=== PATIENT | male | born 1945 | race Caucasian/White ===

== ENCOUNTER 2018-03-25 10:45 | Emergency (ER) | payer MEDICARE, OTHER ==
[~2018-03-25] VITALS: Ht 175.3 cm; Wt 80.0 kg
[~2018-03-25 10:45] MED LIST: ASPI-500; CARV-50 PO; FURO-150 PO; IBUP-24 PO; LISI-232 PO; MULT-785 PO; SIMV10TA2 PO
[2018-03-25 10:47] VITALS: BP 139/66
[2018-03-25] MEDS ORDERED: TETanus/Pertussis (Acell)/Diphther VAC/PF (Tdap-Adult) 0.5ml syringe IM ONE (11:05)
[2018-03-25] MEDS ORDERED: LIDOcaine 1% 30ml preserv. free vial IJ ONE (11:25)
[2018-03-25] MEDS ORDERED: HYDR-4384 PO (12:09)
[2018-03-25] MEDS ORDERED: HYDROcodone/acetaminophen 5mg/325mg tablet PO ONE (12:10)
== END 2018-03-25 13:07 | disposition home or self-care (01) ==
LOC: ER 10:46
DX: S42.491A Other displaced fracture of lower end of right humerus, initial encounter for closed fracture (principal); S01.111A Laceration without foreign body of right eyelid and periocular area, initial encounter; I25.10 Atherosclerotic heart disease of native coronary artery without angina pectoris; I50.9 Heart failure, unspecified; J44.9 Chronic obstructive pulmonary disease, unspecified; Z95.1 Presence of aortocoronary bypass graft; Z79.82 Long term (current) use of aspirin; Z79.899 Other long term (current) drug therapy; W18.49XA Other slipping, tripping and stumbling without falling, initial encounter; Y93.01 Activity, walking, marching and hiking; Y92.89 Other specified places as the place of occurrence of the external cause; Y99.9 Unspecified external cause status
CPT/HCPCS: 12011; 29105; 70450; 72125; 73080; 90471; 90715; 99284

== ENCOUNTER 2018-04-08 13:29 | Inpatient (IN) | payer MEDICARE, OTHER ==
[~2018-04-08] VITALS: Ht 175.3 cm; Wt 75.8 kg
[2018-04-08] MEDS ORDERED: normal saline 1000ML IV soln IVB ONE (13:50)
[2018-04-08] MEDS ORDERED: diltiazem 5mg/ml 5ml inj. IV ONE (13:55)
[2018-04-08] MEDS ORDERED: diltiazem 30mg tablet PO ONE (14:10)
[2018-04-08] MEDS ORDERED: enoxaparin 100mg/ml syringe SUBCUT ONE (14:10)
[2018-04-08 14:38] LABS: BASOPHILS # (AUTO) 0.1 X10'3 (0-0.2); BASOPHILS % (AUTO) 1.1 % (0-1); EOSINOPHILS # (AUTO) 0.1 X10'3 (0-0.9); EOSINOPHILS % (AUTO) 1.2 % (0-6); HEMATOCRIT 45.1 % (42.0-52.0); HEMOGLOBIN 14.8 g/dl (14.0-17.9); LYMPHOCYTES # (AUTO) 1.1 X10'3 (1.1-4.8); LYMPHOCYTES % (AUTO) 11.3 % (21-51); MEAN CORPUSCULAR HEMOGLOBIN 30.9 PG (27.0-31.0); MEAN CORPUSCULAR HGB CONC 32.8 % (33.0-36.5); MEAN CORPUSCULAR VOLUME 94.4 FL (78-98); MEAN PLATELET VOLUME 9.1 FL (7.4-10.4); MONOCYTES # (AUTO) 0.6 X10'3 (0-0.9); MONOCYTES % (AUTO) 6.1 % (2-12); NEUTROPHILS # (AUTO) 7.8 X10'3 (1.8-7.7); NEUTROPHILS % (AUTO) 80.3 % (42-75); PLATELET COUNT 222 X10'3 (140-440); RED BLOOD COUNT 4.78 X10'6 (4.70-6.10); RED CELL DISTRIBUTION WIDTH 13.3 % (11.5-14.5); WHITE BLOOD COUNT 9.8 X10'3 (4.5-11.0)
[2018-04-08 14:44] LABS: ALANINE AMINOTRANSFERASE 19 U/L (12-78); ALBUMIN 3.6 G/DL (3.4-5.0); ALBUMIN/GLOBULIN RATIO 1.2 (1.1-1.5); ALKALINE PHOSPHATASE 64 IU/L (46-116); ANION GAP 14 (8-16); ASPARTATE AMINO TRANSFERASE 27 U/L (10-37); BILIRUBIN,TOTAL 0.5 MG/DL (0.1-1.0); BLOOD UREA NITROGEN 20 MG/DL (7-18); BUN/CREATININE RATIO 16.4 (5.4-32.0); CALCIUM 9.5 MG/DL (8.5-10.1); CHLORIDE 102 MMOL/L (99-107); CREATININE 1.22 MG/DL (0.60-1.10); GLUCOSE 139 MG/DL (70-104); POTASSIUM 3.2 MMOL/L (3.5-5.1); SODIUM 139 MMOL/L (135-145); TOTAL CARBON DIOXIDE 22.7 MMOL/L (24-32); TOTAL PROTEIN 6.6 G/DL (6.4-8.2); eGFR 58 ML/MIN
[2018-04-08 14:48] LABS: INR 1.1 INR; PARTIAL THROMBOPLASTIN TIME 24 SECONDS (22-32); PROTHROMBIN TIME 11.4 SECONDS (9.0-12.0)
[2018-04-08 14:53] LABS: MAGNESIUM 1.8 MG/DL (1.5-2.4)
[2018-04-08] MEDS ORDERED: potassium Cl 20 mEq SR tablet PO STA (14:53)
[2018-04-08] MEDS ORDERED: aspirin 325mg tablet PO ONE (14:55)
[2018-04-08] MEDS ORDERED: ondansetron/PF 4mg/2ml inj IV PRN (17:35)
[2018-04-08] MEDS ORDERED: bisacodyl 10mg suppository rectal RC PRN (17:35)
[2018-04-08] MEDS ORDERED: magnesium 4gm in 100ml NS 100 ML IV PRN (17:35)
[2018-04-08] MEDS ORDERED: mag hydrox/Alum hydrox/simeth 30ml oral suspension PO PRN (17:35)
[2018-04-08] MEDS ORDERED: HYDROcodone/acetaminophen 10/325mg tab PO PRN (17:35)
[2018-04-08] MEDS ORDERED: magnesium hydroxide 30ml (MOM) UD suspension PO PRN (17:35)
[2018-04-08] MEDS ORDERED: acetaminophen 325mg tablet PO PRN ×2 (17:35)
[2018-04-08] MEDS ORDERED: magnesium 1gm/100ml D5W IVPB 100 ML IV PRN (17:35)
[2018-04-08] MEDS: K and/or MAG REPLACEMENT MC SCH (17:35)
[2018-04-08] MEDS ORDERED: diphenhydrAMINE 25mg capsule PO PRN (17:35)
[2018-04-08] MEDS ORDERED: morphine 2 MG/ML inj. syringe IV PRN ×2 (17:35)
[2018-04-08] MEDS ORDERED: potassium Cl 20 mEq SR tablet PO PRN (17:35)
[2018-04-08] MEDS ORDERED: potassium Cl 40MEQ/NS 500ml 500 ML IV PRN ×2 (17:35)
[2018-04-08] MEDS ORDERED: HYDROcodone/acetaminophen 5mg/325mg tablet PO PRN (17:35)
[2018-04-08 18:05] LABS: HEMOGLOBIN A1C 5.6 % (4.5-6.2)
[2018-04-08] MEDS: normal saline 1000ml 1,000 ML IV SCH ×2 (18:13→23:27)
[2018-04-08] MEDS: enoxaparin 40mg/0.4ml syringe SUBCUT SCH (20:16)
[2018-04-08] MEDS: enoxaparin 30mg/0.3ml syringe SUBCUT SCH (20:16)
[2018-04-08] MEDS ORDERED: temazepam 15mg capsule PO PRN (21:00)
[2018-04-08] MEDS ORDERED: ipratropium/albuterol 3ml nebule NEB PRN (21:45)
[2018-04-08 23:00] VITALS: BP 109/49
[2018-04-08] MEDS: potassium Cl 20 mEq SR tablet PO PRN (23:24)
[2018-04-09 03:00] VITALS: BP 120/64
[2018-04-09 03:05] LABS: BASOPHILS % (AUTO) 0.6 % (0-1); EOSINOPHILS # (AUTO) 0.1 X10'3 (0-0.9); EOSINOPHILS % (AUTO) 1.8 % (0-6); HEMATOCRIT 38.2 % (42.0-52.0); LYMPHOCYTES # (AUTO) 1.6 X10'3 (1.1-4.8); LYMPHOCYTES % (AUTO) 30.1 % (21-51); MEAN CORPUSCULAR HEMOGLOBIN 31.5 PG (27.0-31.0); MEAN CORPUSCULAR HGB CONC 34.1 % (33.0-36.5); MEAN CORPUSCULAR VOLUME 92.5 FL (78-98); MEAN PLATELET VOLUME 9.3 FL (7.4-10.4); MONOCYTES # (AUTO) 0.4 X10'3 (0-0.9); NEUTROPHILS # (AUTO) 3.2 X10'3 (1.8-7.7); NEUTROPHILS % (AUTO) 59.5 % (42-75); PLATELET COUNT 187 X10'3 (140-440); RED BLOOD COUNT 4.13 X10'6 (4.70-6.10); RED CELL DISTRIBUTION WIDTH 13.3 % (11.5-14.5); WHITE BLOOD COUNT 5.3 X10'3 (4.5-11.0)
[2018-04-09 03:10] LABS: ALANINE AMINOTRANSFERASE 17 U/L (12-78); ALBUMIN 2.9 G/DL (3.4-5.0); ALBUMIN/GLOBULIN RATIO 1.1 (1.1-1.5); ALKALINE PHOSPHATASE 63 IU/L (46-116); ANION GAP 7 (8-16); ASPARTATE AMINO TRANSFERASE 56 U/L (10-37); BILIRUBIN,TOTAL 0.3 MG/DL (0.1-1.0); BLOOD UREA NITROGEN 21 MG/DL (7-18); CALCIUM 8.6 MG/DL (8.5-10.1); CHLORIDE 104 MMOL/L (99-107); CREATININE 0.75 MG/DL (0.60-1.10); GLUCOSE 99 MG/DL (70-104); POTASSIUM 3.5 MMOL/L (3.5-5.1); SODIUM 138 MMOL/L (135-145); TOTAL CARBON DIOXIDE 26.8 MMOL/L (24-32); TOTAL PROTEIN 5.6 G/DL (6.4-8.2); eGFR > 90 ML/MIN
[2018-04-09 03:15] LABS: CHOL/HDL RATIO 4.2 (0.00-4.99); CHOLESTEROL 182 MG/DL (0-200); HDL CHOLESTEROL 43 MG/DL (35-60); LDL CHOLESTEROL 117 MG/DL (50-100); MAGNESIUM 1.8 MG/DL (1.5-2.4); PHOSPHORUS 3.1 MG/DL (2.3-4.5); TRIGLYCERIDES 113 MG/DL (20-135)
[2018-04-09 06:00] VITALS: BP 135/94
[2018-04-09] MEDS: carVEDilol 12.5mg tablet PO SCH ×2 (08:03→20:39)
[2018-04-09] MEDS: aspirin 81mg tablet.DR PO SCH (08:04)
[2018-04-09] MEDS: potassium Cl 20 mEq SR tablet PO PRN ×3 (08:04→20:34)
[2018-04-09] MEDS: enoxaparin 30mg/0.3ml syringe SUBCUT SCH (08:04)
[2018-04-09] MEDS: magnesium Cl slow-release 64mg tablet PO PRN ×2 (08:04→15:50)
[2018-04-09] MEDS: atorvastatin 20mg tablet PO SCH (08:04)
[2018-04-09] MEDS: enoxaparin 40mg/0.4ml syringe SUBCUT SCH (08:05)
[2018-04-09] MEDS: K and/or MAG REPLACEMENT MC SCH (08:05)
[2018-04-09 11:00] VITALS: BP 111/49
[2018-04-09] MEDS: amiodarone 200mg tablet PO SCH ×2 (13:06→20:34)
[2018-04-09 15:00] VITALS: BP 108/46
[2018-04-09 19:00] VITALS: BP 131/68
[2018-04-09] MEDS: apixaban 5mg tablet PO SCH (20:36)
[2018-04-09 23:00] VITALS: BP 108/52
[2018-04-10 03:00] VITALS: BP 107/52
[2018-04-10 05:43] LABS: BASOPHILS % (AUTO) 0.4 % (0-1); EOSINOPHILS # (AUTO) 0.1 X10'3 (0-0.9); EOSINOPHILS % (AUTO) 1.6 % (0-6); HEMATOCRIT 41.1 % (42.0-52.0); HEMOGLOBIN 13.6 g/dl (14.0-17.9); LYMPHOCYTES # (AUTO) 1.6 X10'3 (1.1-4.8); MEAN CORPUSCULAR HEMOGLOBIN 30.7 PG (27.0-31.0); MEAN CORPUSCULAR HGB CONC 33.2 % (33.0-36.5); MEAN CORPUSCULAR VOLUME 92.4 FL (78-98); MEAN PLATELET VOLUME 9.4 FL (7.4-10.4); MONOCYTES # (AUTO) 0.6 X10'3 (0-0.9); MONOCYTES % (AUTO) 9.6 % (2-12); NEUTROPHILS # (AUTO) 3.7 X10'3 (1.8-7.7); NEUTROPHILS % (AUTO) 61.4 % (42-75); PLATELET COUNT 198 X10'3 (140-440); RED BLOOD COUNT 4.45 X10'6 (4.70-6.10); RED CELL DISTRIBUTION WIDTH 13.4 % (11.5-14.5)
[2018-04-10 06:00] VITALS: BP 116/48
[2018-04-10 06:08] LABS: ALANINE AMINOTRANSFERASE 18 U/L (12-78); ALBUMIN 3.1 G/DL (3.4-5.0); ALBUMIN/GLOBULIN RATIO 1.1 (1.1-1.5); ALKALINE PHOSPHATASE 56 IU/L (46-116); ANION GAP 6 (8-16); ASPARTATE AMINO TRANSFERASE 27 U/L (10-37); BILIRUBIN,TOTAL 0.5 MG/DL (0.1-1.0); BLOOD UREA NITROGEN 13 MG/DL (7-18); BUN/CREATININE RATIO 14.4 (5.4-32.0); CALCIUM 9.4 MG/DL (8.5-10.1); CHLORIDE 104 MMOL/L (99-107); GLUCOSE 100 MG/DL (70-104); MAGNESIUM 2.1 MG/DL (1.5-2.4); PHOSPHORUS 2.7 MG/DL (2.3-4.5); POTASSIUM 5.1 MMOL/L (3.5-5.1); SODIUM 140 MMOL/L (135-145); TOTAL CARBON DIOXIDE 29.9 MMOL/L (24-32); eGFR 82 ML/MIN
[2018-04-10] MEDS: amiodarone 200mg tablet PO SCH (07:19)
[2018-04-10] MEDS: carVEDilol 12.5mg tablet PO SCH (07:19)
[2018-04-10] MEDS: atorvastatin 20mg tablet PO SCH (07:19)
[2018-04-10] MEDS: aspirin 81mg tablet.DR PO SCH (07:19)
[2018-04-10] MEDS: apixaban 5mg tablet PO SCH (07:19)
[2018-04-10] MEDS: K and/or MAG REPLACEMENT MC SCH (08:00)
[2018-04-10 11:00] VITALS: BP 123/55
[2018-04-10] MEDS ORDERED: BUDE10.22 INH (13:40)
[2018-04-10] MEDS ORDERED: AMIO200T40 PO (13:40)
[2018-04-10] MEDS ORDERED: ALBU8.5H8 INH (13:40)
[2018-04-10] MEDS ORDERED: APIX5TAB3 PO (13:40)
[2018-04-10 15:00] VITALS: BP 100/42
== END 2018-04-10 19:51 | disposition home health service (06) | DRG 308 ==
LOC: ER 13:30 → ED HOLD 17:34 → CMPBEDREQ 21:48 → PCU 3S 21:57
PROVIDERS: ADMIT Family Medicine; ATTEND Family Medicine
PROC: 4B02XTZ Measurement of Cardiac Defibrillator, External Approach (ICD-10-PCS; principal; 2018-04-10)
DX: I48.91 Unspecified atrial fibrillation (principal); N17.0 Acute kidney failure with tubular necrosis; I13.0 Hypertensive heart and chronic kidney disease with heart failure and stage 1 through stage 4 chronic kidney disease, or unspecified chronic kidney disease; I50.22 Chronic systolic (congestive) heart failure; I42.9 Cardiomyopathy, unspecified; I48.92 Unspecified atrial flutter; I49.9 Cardiac arrhythmia, unspecified; E78.5 Hyperlipidemia, unspecified; E86.0 Dehydration; R74.8 Abnormal levels of other serum enzymes; E87.6 Hypokalemia; F12.90 Cannabis use, unspecified, uncomplicated; I25.10 Atherosclerotic heart disease of native coronary artery without angina pectoris; F17.210 Nicotine dependence, cigarettes, uncomplicated; Z60.2 Problems related to living alone; I73.9 Peripheral vascular disease, unspecified; J44.9 Chronic obstructive pulmonary disease, unspecified; N18.9 Chronic kidney disease, unspecified; Z96.611 Presence of right artificial shoulder joint; Z91.19 Patient's noncompliance with other medical treatment and regimen; Z95.1 Presence of aortocoronary bypass graft; Z95.810 Presence of automatic (implantable) cardiac defibrillator; Z79.01 Long term (current) use of anticoagulants; Z79.899 Other long term (current) drug therapy; Z79.82 Long term (current) use of aspirin; Z86.79 Personal history of other diseases of the circulatory system; Z80.0 Family history of malignant neoplasm of digestive organs; Z82.49 Family history of ischemic heart disease and other diseases of the circulatory system; Z71.6 Tobacco abuse counseling
CPT/HCPCS: 36415; 71045; 80053; 80061; 83036; 83735; 83880; 84100; 84484; 85025; 85610; 85730; 87070; 93005; 93306; 94760; 96361; 96372; 96374; 99285; G0378; J1650; J3490; J7030